=== PATIENT | female | born 1990 | race Two or more races ===

== ENCOUNTER 2023-12-16 23:56 | Emergency (ER) | payer MEDICAID, OTHER ==
[~2023-12-16] VITALS: Ht 165.1 cm; Wt 169.3 kg
[2023-12-17] MEDS: ALBUTEROL SULF 2.5 MG/0.5ML(0.5%) NEB SOLN NEB ONE (00:43)
[2023-12-17] MEDS: IPRATROPIUM BROM 0.5 MG/2.5ML INH SOL NEB ONE (00:43)
[2023-12-17 01:05] LABS: Basophils # (auto) 0.1 10 ^3/uL (0-0.2); Basophils % (auto) 1.5 % (0.0-2.0); Eosinophils # (auto) 0 10 ^3/uL (0-0.8); Hematocrit 31.4 % (36.0-46.0); Hemoglobin 10.8 g/dL (12.2-16.2); Lymphocytes # (auto) 0.6 10 ^3/uL (0.4-5.4); Mean Corpuscular Hemoglobin 32.9 pg (28.0-32.0); Mean Corpuscular Hgb Conc. 34.4 g/dL (32.0-36.0); Mean Corpuscular Volume 95.7 fL (80.0-100.0); Monocytes # (auto) 0.2 10 ^3/uL (0-1.3); Monocytes % (auto) 6.2 % (0.0-12.0); Neutrophils # (auto) 2.6 10 ^3/uL (1.6-8.6); Neutrophils % (auto) 74.3 % (37.0-80.0); Red Blood Cells 3.28 10^6/uL (4.0-5.20); White Blood Cell 3.5 10^3/uL (4.4-10.8)
[2023-12-17 01:07] LABS: Red Cell Distribution Width 20.5 % (11.8-14.3)
[2023-12-17 01:13] LABS: COVID19 ANTIGEN SOFIA FIA POSITIVE (NEGATIVE)
[2023-12-17 01:24] LABS: Alanine Aminotransferase 30 U/L (7-40); Albumin 4.4 g/dL (3.2-4.8); Alkaline Phosphatase 112 U/L (46-116); Anion Gap 8 (5-15); Aspartate Aminotransferase 30 U/L (13-40); Bilirubin, Total 0.4 mg/dL (0.2-1.0); Blood Urea Nitrogen 12 mg/dL (9-23); Calcium 10.2 mg/dL (8.7-10.4); Carbon Dioxide 26 mmol/L (20-30); Chloride 107 mmol/L (98-107); Glucose 122 mg/dL (74-106); Potassium 3.4 mmol/L (3.5-5.1); Sodium 141 mmol/L (136-145); Total Protein 7.4 g/dL (5.7-8.2)
[2023-12-17] MEDS ORDERED: BENZ100C97 PO (01:30)
[2023-12-17] MEDS ORDERED: ZOFR4T PO (01:30)
[2023-12-17] MEDS ORDERED: ALBU108A5 IN (01:30)
[2023-12-17] MEDS ORDERED: ACET500T58 PO (01:30)
[2023-12-17 05:30] VITALS: BP 148/82; PULSE 128; RESP 20; O2SAT 97
[2023-12-17] MEDS: DexAMETHasone SOD PHOS 10MG/1ML VIAL INJ IM ONE (05:46)
[2023-12-17] MEDS: ACETAMINOPHEN 325 MG TAB PO ONE (05:46)
[2023-12-17] MEDS: SODIUM CHLORIDE 0.9% 1,000 ML IV ONE (05:57)
[2023-12-17] MEDS: ONDANSETRON ODT 4 MG TAB PO ONE (06:35)
[2023-12-17 06:57] VITALS: TEMP 99.9
== END 2023-12-17 06:55 | disposition home or self-care (01) ==
LOC: ER 23:56
DX: U07.1 COVID-19 (principal); J45.909 Unspecified asthma, uncomplicated; E66.01 Morbid (severe) obesity due to excess calories; Z68.44 Body mass index [BMI] 60.0-69.9, adult; Z85.3 Personal history of malignant neoplasm of breast; Z86.2 Personal history of diseases of the blood and blood-forming organs and certain disorders involving the immune mechanism
CPT/HCPCS: 36415; 71045; 80053; 83880; 85025; 87426; 94640; 96360; 96372; 99284; J1100; J7030; J7644; Q0162